=== PATIENT | male | born 1955 | race Caucasian/White ===

== ENCOUNTER → 2022-04-13 | Outpatient (CLI) | payer MEDICARE, OTHER, SELFPAY ==
--- NOTE | 2022-04-13 11:10 | MRI_ITS ---
STUDY: MRI LUMBAR SPINE WITH AND WITHOUT CONTRAST REASON FOR EXAM: Male, 66 years old. SPONDYLOLISTHESIS -- PRIOR SX TECHNIQUE: Standardized fat and water weighted pulse sequences were obtained in the sagittal and axial planes. 24 mL of IV Clariscan was administered for the contrast portion of the examination. COMPARISON: None FINDINGS: T11-T12: (Sagittal only). Normal endplates. Mild disc space height narrowing. No ventral extradural defect. Normal central canal and bilateral intervertebral neural foramina. T12-L1: (Sagittal only). Normal endplates. Normal disc height, hydration and morphology. Normal central canal and bilateral intervertebral neural foramina. Normal lumbar lordosis. There is no substantial scoliosis. Normal conus medullaris that terminates at the T12-L1 disc space level. L1-2: Normal endplates. Mild disc space height narrowing. No significant facet arthropathy. Normal central canal and bilateral lateral recesses. Normal bilateral intervertebral neural foramina. L2-3: Normal endplates. Mild disc space height narrowing. No significant facet arthropathy. Normal central canal and bilateral lateral recesses. Mild dorsal epidural lipomatosis. Normal bilateral intervertebral neural foramina. L3-4: Normal endplates. Minimal disc space height narrowing. Minimal degenerative retrolisthesis of L3 on L4. Postsurgical absence of the L4 spinous processes and lamina. Normal central canal and bilateral lateral recesses. Normal bilateral intervertebral neural foramina. L4-5: Normal endplates. Minimal disc space height narrowing. Postsurgical absence of the spinous processes and lamina. Normal central canal and bilateral lateral recesses. No significant facet arthropathy. Normal bilateral intervertebral neural foramina. L5-S1: Normal endplates. Normal disc height, hydration and morphology. Normal bilateral facet joints. Normal central canal and bilateral lateral recesses. Normal bilateral intervertebral neural foramina. Normal visualized sacral ala. Normal visualized paraspinous soft tissue structures. Following IV contrast administration, there is enhancing postoperative fibrosis behind the laminectomy site at L4-L5 disc space level. No abnormal enhancing lesions intradurally and extradurally. MRI/Spine Lumbar W/WO Contrast IMPRESSION: 1. No MRI evidence of lumbar extruded disc fragment, disc protrusion or spinal stenosis. 2. Contrast enhancing postoperative fibrosis behind the laminectomy site at the L4-L5 disc space level. 3. No abnormal enhancing lesions intradurally and extradurally. 4. Minimal degenerative retrolisthesis of L3 on L4. Electronically Signed: Vincenzo Handy MD at 13:45 EST ,
[2022-04-13 11:55] LABS: EGFR FINGERSTICK > 60.0000 mL/min (>60)
== END | disposition home or self-care (01) ==
LOC: MRI 10:37
PROVIDERS: PCP Family Medicine; Referring Provider Orthopaedic Surgery; Visit Provider Orthopaedic Surgery
DX: M43.16 Spondylolisthesis, lumbar region (principal)
CPT/HCPCS: 72158; A9575